=== PATIENT | female | born 1980 | race Caucasian/White ===

== ENCOUNTER 2021-02-22 10:03 | Outpatient (CLI) | payer BC, SELFPAY ==
--- NOTE | ~2021-02-22 | MM_ITS ---
EXAMINATION: MM screening [facility] BI w sera HISTORY: Screening mammogram TECHNIQUE: Craniocaudal and mediolateral oblique 3-D tomosynthesis images were obtained and synthetic 2-D images were generated. CAD analysis was submitted and interpreted. COMPARISON: 11/19/2012, 06/26/2008 BREAST PARENCHYMAL COMPOSITION: There are scattered areas of fibroglandular density. FINDINGS: RIGHT BREAST: An asymmetry is present in the posterior third of the outer breast 6 cm from the nipple on the craniocaudal view. LEFT BREAST: There is no evidence of suspicious mass, calcification, or architectural distortion to s uggest malignancy. There has been no significant interval change. IMPRESSION: 1. Right breast asymmetry. 2. Additional mammographic views and possible breast ultrasound are recommended. BI-RADS Category 0: Incomplete: Needs additional imaging evaluation. Reviewed, dictated and finalized at location A. IMPRESSION: 1. Right breast asymmetry. 2. Additional mammographic views and possible breast ultrasound are recommended . BI-RADS Category 0: Incomplete: Needs additional imaging evaluation.
== END 2021-02-22 10:04 | disposition home or self-care (01) ==
LOC: ANHIMG 10:07
DX: Z12.31 Encounter for screening mammogram for malignant neoplasm of breast (principal); R92.8 Other abnormal and inconclusive findings on diagnostic imaging of breast
CPT/HCPCS: 77063; 77067

== ENCOUNTER 2021-03-19 12:34 | Outpatient (CLI) | payer BC, SELFPAY ==
--- NOTE | ~2021-03-19 | MMUS_ITS ---
EXAMINATION: MM diagnostic viry RT w sera, US breast RT limited HISTORY: Follow-up right breast asymmetry TECHNIQUE: Additional 3-D tomosynthesis images of the right breast were performed and synthetic 2-D i mages were generated. CAD analysis was submitted and interpreted. High resolution Limited right breas t ultrasound was performed. COMPARISON: 02/22/2021 BREAST PARENCHYMAL COMPOSITION: Breast composed of scattered areas of fibroglandular density. FINDINGS: MAMMOGRAPHIC FINDINGS: There are no suspicious masses, calcifications or architectural distortion in the right breast to sug gest malignancy. ULTRASOUND: Limited right breast ultrasound: Normal heterogeneous echotexture without focal solid or cystic mass. IMPRESSION: 1. No evidence for malignancy in the right breast. 2. Routine yearly screening mammogram and regular clinical breast examination are recommended. BI-RADS Category 1: Negative Reviewed, dictated and finalized at location A. IMPRESSION: 1. No evidence for malignancy in the right breast. 2. Routine yearly screening mammogram and regular clinical breast examination a re recommended. BI-RADS Category 1: Negative
== END 2021-03-19 12:35 | disposition home or self-care (01) ==
LOC: ANHIMG 12:35
DX: R92.8 Other abnormal and inconclusive findings on diagnostic imaging of breast (principal)
CPT/HCPCS: 76642; 77061; 77065; G0279

== ENCOUNTER 2022-03-05 18:55 | Observation (INO) | payer BC, SELFPAY ==
--- NOTE | ~2022-03-05 | CT_ITS ---
EXAMINATION: CT abdomen pelvis w con DATE: 03/05/2022 19:46 INDICATION: RLQ pain TECHNIQUE: Computed tomography (CT) of the abdomen and pelvis was performed with 100 mL Omnipaque-300 intravenous contrast. Automated exposure control and iterative reconstruction technique were employe d. The dose-length product was 199.98 mGy-cm. COMPARISON: 09/15/2015. FINDINGS: Lower thorax: Unremarkable Liver: Normal. Biliary/Gallbladder: Gallbladder is absent. No bile duct dilation. Pancreas: No mass or duct dilation. Spleen: Normal. Adrenals:No mass. Kidneys: No mass, stone, or hydronephrosis. Right midpole hypodensity, too small to characterize but likely a cyst. GI tract: No small or large bowel dilation. The right upper quadrant appendix is mildly dilated, with wall hyperemia. Distal appendicolith. Surrounding inflammatory change and pericecal inflammatory nory nge. No wall breakdown. Hypermobile cecum situated in the right upper quadrant. Mesentery/Peritoneum: No ascites, mass, or free air. Retroperitoneum: No mass. Pelvis: Retroverted uterus. Posterior uterine scar. Status post left oophorectomy. Soft Tissues: Soft tissues and body wall unremarkable. Bones: No acute osseous finding. IMPRESSION: Acute appendicitis. Please note the appendix is located in the right upper quadrant between the infer ior liver and right kidney. Reviewed, dictated and finalized at location K. IMPRESSION: Acute appendicitis. Please note the appendix is located in the right upper quad rant between the inferior liver and right kidney.
[2022-03-05 19:00] VITALS: BP 113/63; PULSE 73; RESP 16; TEMP 36.7; O2SAT 100
[2022-03-05 19:35] LABS: Basophils Absolute Auto 0.1 K/mm3 (0.0-0.1); Basophils Percent Auto 0.6 % (0.2-1.2); Eosinophils Absolute Auto 0.1 K/mm3 (0-0.3); Eosinophils Percent Auto 0.9 % (0-4.4); Hematocrit 33.3 % (37.0-47.0); Hemoglobin 10.1 g/dL (12.0-15.0); Immature Granulocyte Absolute 0.02 K/mm3 (0.00-0.031); Immature Granulocyte Percent A 0.2 % (0-0.5); Lymphocytes Absolute Auto 2.15 K/mm3 (0.9-3.2); Lymphocytes Percent Auto 18.5 % (18.3-44.2); Mean Corpuscular HGB Conc 30.3 g/dl (32-36); Mean Corpuscular Volume 79.3 fl (80-100); Mean Platelet Volume 10.1 fl (7.4-10.4); Monocytes Absolute Auto 0.7 K/mm3 (0.1-0.6); Monocytes Percent Auto 6.3 % (2.6-8.5); Neutrophils Absolute Auto 8.6 K/mm3 (1.3-6.7); Neutrophils Percent Auto 73.5 % (45.5-73.1); Platelet Count Result 275 k/mm3 (150-375); Red Cell Distribution Width 14.6 % (11.5-14.5); White Blood Count 11.7 K/mm3 (4.5-10.0)
[2022-03-05 19:39] LABS: Estimated CRCL calculation 76 ml/min; Estimated Glomerular Filt Rate > 60
[2022-03-05 19:44] LABS: Alanine Aminotransferase 13 U/L (6-35); Albumin Level 4.8 g/dL (3.5-5.1); Alkaline Phosphatase 49 U/L (38-126); Anion Gap 7 mmol/L (8-16); Aspartate Amino Transferase 23 U/L (14-36); Bilirubin,Total 0.4 mg/dL (0.2-1.3); Blood Urea Nitrogen 10 mg/dL (7-17); Calcium 9.6 mg/dL (8.4-10.2); Carbon Dioxide 25 mmol/L (22-30); Chloride 106 mmol/L (98-107); Estimated CRCL calculation 76 ml/min; Estimated Glomerular Filt Rate > 60; Glucose 116 mg/dL (65-110); Lipase 84 U/L (23-300); Potassium 4.2 mmol/L (3.4-5.0); Sodium 138 mmol/L (137-145)
--- NOTE | 2022-03-05 20:10 | ED.GENADULT ---
HPI - General Adult General Chief complaint: Abdominal Pain Stated complaint: abd pain Time Seen by Provider: 03/05/22 19:29 History of Present Illness HPI narrative: 41-year-old female presenting to the emergency department for evaluation of lower abdominal pain. Patient states that she felt fine this morning and after lunch she reports she had a large bowel movement and had worsening lower abdominal pain. Patient since that time she has had nausea without vomiting. Patient reports that the pain has been located in the right lower abdomen. Patient does have a prior surgical history of an oophorectomy. Patient denies any prior history of cholecystectomy or appendectomy Related Data Home Medications Medication Instructions Recorded Confirmed No Home Medications 03/05/22 03/05/22 Allergies Allergy/AdvReac Type Severity Reaction Status Date / Time Penicillins Allergy Intermediate Hives Verified 03/05/22 22:12 adhesive tape Allergy Blister Verified 03/05/22 22:12 Review of Systems Review of Systems: CONSTITUTIONAL: Denies fever, chills, or sweats. EYES: Denies visual changes, redness, or discharge. ENT: Denies rhinorrhea, congestion, sore throat, or otalgia. CARDIOVASCULAR: Denies chest pain, palpitations, or edema. RESPIRATORY: Denies cough or dyspnea. GASTROINTESTINAL: See HPI GENITOURINARY: Denies dysuria or hematuria. SKIN: Denies rash or itching. MUSCULOSKELETAL: Denies back pain, joint pain, or myalgia. NEUROLOGIC: Denies headache, numbness, or weakness. [facility] Family History Family History (Updated 03/05/22 @ 22:00 by Leatha Montgomery RN) Grandparent Diabetes mellitus H/O heart surgery Father Heart attack Social History Social History Smoking status: Never smoker Alcohol intake: never Substance use: never Substance use type: does not use Spiritual care concerns: No Exam Narrative: APPEARANCE: Well appearing, no pain, no distress, well-nourished. HEAD: normocephalic, atraumatic. EYES: PERRLA/EOMI, conjunctivae clear. NOSE: Normal no drainage NECK: Supple. No adenopathy, no masses. RESPIRATORY: Airway patent, respirations nonlabored. Clear to auscultation bilaterally, no rales, rhonchi, wheezing. CARDIOVASCULAR: Regular rate and rhythm without murmurs rubs or gallops. ABDOMINAL: Soft, tenderness to right lower quadrant MUSCULOSKELETAL: Moves all extremities. Strength/ROM intact, No edema, No calf tenderness. NEURO: Alert. Cranial nerves II through XII intact. Grossly intact SKIN: Warm, dry. Normal Color Course Course Emergency Course: Patient declined any medications for pain control. Patient states she was not nauseous. CT scan did show acute appendicitis. Patient was admitted to Dr. Hughes. Patient was started on clinda and Cipro due to underlying penicillin allergy. Vital Signs Vital signs: Vital Signs Temperature 98.0 F 03/05/22 19:00 Pulse Rate 73 03/05/22 19:00 Respiratory Rate 16 03/05/22 19:00 Blood Pressure 113/63 03/05/22 19:00 Pulse Oximetry 100 03/05/22 19:00 Oxygen Delivery Room Air 03/05/22 19:00 Temperature 97.8 F 03/05/22 22:00 Pulse Rate 82 03/05/22 22:00 Respiratory Rate 18 03/05/22 22:00 Blood Pressure 91/49 L 03/05/22 22:00 Pulse Oximetry 100 03/05/22 22:00 Oxygen Delivery Room Air 03/05/22 21:35 Medical Decision Making Vital Signs Vital Signs: Vital Signs Temperature 98.0 F 03/05/22 19:00 Pulse Rate 73 03/05/22 19:00 Respiratory Rate 16 03/05/22 19:00 Blood Pressure 113/63 03/05/22 19:00 Pulse Oximetry 100 03/05/22 19:00 Oxygen Delivery Room Air 03/05/22 19:00 Temperature 97.8 F 03/05/22 22:00 Pulse Rate 82 03/05/22 22:00 Respiratory Rate 18 03/05/22 22:00 Blood Pressure 91/49 L 03/05/22 22:00 Pulse Oximetry 100 03/05/22 22:00 Oxygen Delivery Room Air 03/05/22 21:35 Lab Data Result diagrams: 03/05/22 19:24 03/05/22 19:3
[2022-03-05] MEDS: CLINDAMYCIN 600 MG/D5W 50 ML 600 MG/50 ML PIGGYBACK 100 MG IVPB (20:36)
[2022-03-05] MEDS: SODIUM CHLORIDE 0.9% IV 1,000 ML 125 ML IV CONT (20:36)
[2022-03-05] MEDS: METOCLOPRAMIDE HCL INJ 10 MG/2 ML VIAL IV PUSH (20:45)
[2022-03-05] MEDS: CIPROFLOXACIN 400 MG/D5W 200ML 200 ML 200 MG IVPB (21:04)
[2022-03-05 21:05] LABS: SARS-CoV-2 RNA PCR Negative
[2022-03-05 21:13] VITALS: BP 114/68; PULSE 70; RESP 16; O2SAT 100
--- NOTE | 2022-03-05 21:19 | PC.NURSE ---
patient being transferred to floor with IVF and IV abx infusing
--- NOTE | 2022-03-05 21:25 | ADMGEN ---
This patient, Tarah Kam, was admitted to [facility] Surg Room 301-01. Patient/family oriented to hospital policies and general routines including ID bracelet, bed and alarms, visiting hours, pain management, procedures, bathroom and other care routines, personal items, smoking policy, room service/diet, and visiting hours. Information on how to activate the Rapid Response Team has been discussed. Patient/Family are encouraged to report perceived risks to care and to ask questions if they do not understand what they are told or what they should do.
[2022-03-05 21:35] VITALS: BMI 20.7
[2022-03-05 22:00] VITALS: BP 91/49; PULSE 82; RESP 18; TEMP 36.6; O2SAT 100
[2022-03-05 22:09] LABS: Appearance Urine Clear (Clear); Bilirubin Urine Negative (Negative); Blood Urine Negative (Negative); Color Urine Yellow (Yellow); Glucose Urine UA Negative (Negative); Ketones Urine Negative (Negative); Leukocyte Esterase Ur Negative LEU/UL (Negative); Nitrate Urine Negative (Negative); Protein Urine Negative (Negative); Specific Grav Ur <= 1.005 (1.001-1.035); Urobilinogen Urine 0.2 mg/dL (<2.0); pH Urine 5.5 (5.0-9.0)
[2022-03-05 22:10] LABS: Add Urine Microscopic? NO
[2022-03-05] MEDS: ONDANSETRON INJ 4 MG/2 ML VIAL IV PUSH (23:57)
[2022-03-06] VITALS (8 sets, daily range): BP systolic 88–111; BP diastolic 43–71; PULSE 62–93; RESP 12–18; TEMP 36.2–36.7; O2SAT 99–100
[2022-03-06] MEDS: SODIUM CHLORIDE 0.9% IV 1,000 ML 125 ML IV CONT (04:38)
--- NOTE | 2022-03-06 07:24 | WPDHPUPDATE1 ---
History and Physical Update Update Date/Time: 03/06/22 07:24 History and Physical has been reviewed, including an updated exam of the patient. There are NO changes in the patient's condition. Risks, benefits, and alternatives have been discussed and questions answered. Patient agrees to proceed with procedure.
--- NOTE | 2022-03-06 07:25 | PM.IMHP ---
H&P: HPI History of Present Illness Date/Time: 03/06/22 07:25 Chief Complaint: Right lower quadrant pain Narrative: This is a 41-year-old woman who presented to the emergency department last night with right lower quadrant pain. She states that yesterday she began experiencing some vague abdominal pains and had a large bowel movement but pain persisted. Most of her pain was periumbilical initially. It has now localized more to the right lower quadrant. She has never experienced pain like this in the past. She denies any fevers or chills. She was having some nausea. She does have some occasional IBS type symptoms that have been more recent, but denies any other change in bowel habits. Review of Systems Review of Systems: All systems reviewed & are unremarkable except as noted in HPI and below Eyes: Eyes: Denies change in vision ENT: Denies hearing loss, Denies neck pain and Denies sore throat Cardiovascular: Cardiovascular: Denies chest pain and Denies dyspnea Respiratory: Respiratory: Denies cough, Denies dyspnea and Denies wheezing Genitourinary: Genitourinary: Denies hematuria and Denies dysuria Musculoskeletal: Musculoskeletal: Denies arthralgias, Denies joint swelling and Denies neck pain Allergic/Immunologic: Allergic/Immunologic: Denies wheezing PMFSH Past Medical History Medical History (Updated 03/06/22 @ 07:29 by Scooby Hughes DO) No pertinent past medical history Surgical History Surgical History (Updated 03/06/22 @ 07:28 by Scooby Hughes DO) History of left oophorectomy Hx laparoscopic cholecystectomy Family History Family History (Updated 03/05/22 @ 22:00 by Leatha Montgomery RN) Grandparent Diabetes mellitus H/O heart surgery Father Heart attack Social History Social History Smoking status: Never smoker Alcohol intake: never Substance use: never Substance use type: does not use Spiritual care concerns: No Meds Home Medications and Allergies Home Medications Medication Instructions Recorded Confirmed Type No Home Medications 03/05/22 03/05/22 History Allergies Allergy/AdvReac Type Severity Reaction Status Date / Time Penicillins Allergy Intermediate Hives Verified 03/05/22 22:12 adhesive tape Allergy Blister Verified 03/05/22 22:12 Vital Signs Vital Signs - 24 hr 03/05/22 19:00 03/05/22 21:13 03/05/22 21:35 Temperature 36.7 C Pulse Rate 73 70 Respiratory Rate 16 16 Blood Pressure 113/63 114/68 Pulse Oximetry 100 100 Oxygen Delivery Room Air Room Air 03/05/22 22:00 03/06/22 06:00 Temperature 36.6 C 36.2 C L Pulse Rate 82 75 Respiratory Rate 18 18 Blood Pressure 91/49 L 88/43 L Pulse Oximetry 100 100 Oxygen Delivery Exam Const: General: alert; No acute distress Orientation/consciousness: patient oriented x3 Limitations: no limitations HENMT: Head: normocephalic and atraumatic Ears: hearing grossly normal bilaterally General nose exam: Normal external nose present and Normal nares present Mouth: Yes Normal oral and palatal mucosa present and Yes moist mucous membranes Eyes: General: appearance normal, both eyes and all related structures Conjunctivae: conjunctivae normal Sclera: sclerae normal Pupils: Equal, round and reactive pupils present EOM: EOMs intact bilaterally Neck: Neck: normal visual inspection, full ROM, no lymphadenopathy, supple and no JVD Lymphatic: no lymphadenopathy noted Chest: Chest palpation & inspection: normal inspection of the chest Resp: Effort & Inspection: normal respiratory effort and able to speak in complete sentences Auscultation: clear to auscultation bilaterally Percussion: percussion normal Cardio: Jugular venous distension: no JVD Rate: regular rate Rhythm: regular rhythm Heart sounds: S1 normal heart sound present and S2 normal heart sound present Peripheral pulses: Peripheral pulses 2+ throughout GI: Inspection: normal to inspection GI Palp: Yes S
--- NOTE | 2022-03-06 07:38 | WPDANESEPPF ---
Anes - Initial Pre Proc Eval Procedure: Operation Date: 03/06/22 07:30 Proposed Procedures p Laparoscopic Appendectomy, possible open - Scooby Hughes DO Date/Time: 03/06/22 07:38 Surgeon: Scooby Hughes DO Pre Op Diagnosis: Acute Appy Patient Data Age: 41 Gender: F Height: 1.63 m Weight: 54.9 kg Last Vital Signs Temp 36.2 C L 03/06/22 06:00 Pulse 75 03/06/22 06:00 Resp 18 03/06/22 06:00 BP 88/43 L 03/06/22 06:00 Pulse Ox 100 03/06/22 06:00 O2 Del Method Room Air 03/05/22 21:35 Allergies Allergy/AdvReac Type Severity Reaction Status Date / Time Penicillins Allergy Intermediate Hives Verified 03/05/22 22:12 adhesive tape Allergy Blister Verified 03/05/22 22:12 Home Medications Medication Instructions Recorded Confirmed Type No Home Medications 03/05/22 03/05/22 History Laboratory Tests 03/05/22 03/05/22 03/05/22 19:24 19:24 19:33 WBC 11.7 K/mm3 H K/mm3 (4.5-10.0) RBC 4.20 M/mm3 M/mm3 (4.2-5.4) Hgb 10.1 g/dL L g/dL (12.0-15.0) Hct 33.3 % L % (37.0-47.0) MCV 79.3 fl L fl (80-100) MCH 24.0 pg L pg (26-34) MCHC 30.3 g/dl L g/dl (32-36) RDW 14.6 % H % (11.5-14.5) Plt Count 275 k/mm3 k/mm3 (150-375) MPV 10.1 fl fl (7.4-10.4) Immature Gran % (Auto) 0.2 % % (0-0.5) Neut % (Auto) 73.5 % H % (45.5-73.1) Lymph % (Auto) 18.5 % % (18.3-44.2) [place] % (Auto) 6.3 % % (2.6-8.5) Eos % (Auto) 0.9 % % (0-4.4) Baso % (Auto) 0.6 % % (0.2-1.2) Lymph # (Auto) 2.15 K/mm3 K/mm3 (0.9-3.2) [place] # (Auto) 0.7 K/mm3 H K/mm3 (0.1-0.6) Eos # (Auto) 0.1 K/mm3 K/mm3 (0-0.3) Baso # (Auto) 0.1 K/mm3 K/mm3 (0.0-0.1) Abs Immat Gran (auto) 0.02 K/mm3 K/mm3 (0.00-0.031) Absolute Neuts (auto) 8.6 K/mm3 H K/mm3 (1.3-6.7) Absolute Nucleated RBC 0.0 K/mm3 K/mm3 (0.0-0.012) Nucleated RBC % 0.0 % % (0.0-0.2) Sodium 138 mmol/L mmol/L (137-145) Potassium 4.2 mmol/L mmol/L (3.4-5.0) Chloride 106 mmol/L mmol/L (98-107) Carbon Dioxide 25 mmol/L mmol/L (22-30) Anion Gap 7 mmol/L L mmol/L (8-16) BUN 10 mg/dL mg/dL (7-17) Creatinine 0.70 mg/dL mg/dL 0.70 mg/dL mg/dL (0.7-1.0) (0.7-1.2) Estim Creat Clear Calc 76 ml/min ml/min 76 ml/min ml/min Estimated GFR > 60 > 60 (59 - ) (59 - ) Glucose 116 mg/dL H mg/dL (65-110) Calcium 9.6 mg/dL mg/dL (8.4-10.2) Total Bilirubin 0.4 mg/dL mg/dL (0.2-1.3) AST 23 U/L U/L (14-36) ALT 13 U/L U/L (6-35) Alkaline Phosphatase 49 U/L U/L (38-126) Total Protein 8.0 g/dL g/dL (6.3-8.2) Albumin 4.8 g/dL g/dL (3.5-5.1) Lipase 84 U/L U/L (23-300) Urine Color Urine Appearance Urine pH Ur Specific [place] Urine Protein Urine Glucose (UA) Urine Ketones Ur Blood (Man) Urine Nitrate Urine Bilirubin Urine Urobilinogen Leukocyte Esterase Rfl SARS-CoV-2 RNA (RT-PCR) 03/05/22 03/05/22 20:21 21:56 WBC RBC Hgb Hct MCV MCH MCHC RDW Plt Count MPV Immature Gran % (Auto) Neut % (Auto) Lymph % (Auto) [place] % (Auto) Eos % (Auto) Baso % (Auto) Lymph # (Auto) [place] # (Auto) Eos # (Auto) Baso # (Auto) Abs Immat Gran (auto) Absolute Neuts (auto) Absolute Nucleated RBC Nucleated RBC % Sodium Potassium Chloride
[2022-03-06] MEDS: SCOPOLAMINE 1.5 MG PATCH TRANSDERM (07:45)
[2022-03-06] MEDS: LACTATED RINGERS 1,000 ML 30 ML IV CONT (07:45)
[2022-03-06] MEDS: ceFAZolin 2 GM/D5W 50 ML 2 GM/50 ML BAG IVPB (07:46)
[2022-03-06] MEDS: metroNIDAZOLE 500 MG/ISO 100ML 500 MG/100 ML BAG 100 MG IVPB (07:55)
[2022-03-06] MEDS: LIDO 1%/EPINEPHRINE 1:100,000 10 ML VIAL 30 ML INFILTRATE (08:10)
--- NOTE | 2022-03-06 08:52 | W.PM.PROC2 ---
Procedure Note - Detailed Date of Procedure 03/06/22 Pre-op Diagnosis Acute Appy Post-op Diagnosis Same Procedure Performed Laparoscopic appendectomy Surgeon Scooby Hughes, DO Anesthesia General and Local (0.5% bupivacaine with epinephrine) Indications This is a 41-year-old presented to emergency department last night with right lower quadrant abdominal pain that started earlier that day. She was having vague periumbilical pain that then localized to the right lower quadrant. She had never experienced pain like this before. She had a slightly elevated white blood count at 11.[address] showed evidence of acute appendicitis. She was started on broad-spectrum IV antibiotics was admitted for observation. The following morning discussions were made the patient about treatment options and decision was made to proceed with laparoscopic appendectomy, possible open Findings Laparoscopic appendectomy was performed. Appendix was identified retrocecal location appendix appeared towards the inferior edge of right lobe the liver. There were some adhesions up to the inferior edge of the liver from her prior laparoscopic cholecystectomy. Some of these adhesions were taken down to better visualize the appendix and adequately mobilize the appendix down to the base. The appendix appeared inflamed did not appear to be perforated and there was no evidence of abscess. The base of the appendix appeared healthy and viable. The appendix was removed and sent to the lab for pathology. Description of Procedure Procedure as well as risks, benefits, and alternatives were explained to the patient. The patient agreed to proceed. Written consent was obtained and placed in chart prior to procedure. The patient was brought back to surgical suite. She was placed supine on operating table. Time-out was done to confirm the patient and procedure. The patient was then intubated by the Anesthesia Department. Her abdomen was prepped and draped in sterile fashion using chlorhexidine prep. A 12 mm incision was made at the inferior portion of the umbilicus. Blunt dissection was carried out down to the linea alba. The linea alba was then incised using a 15 blade scalpel. Then bluntly entered into the peritoneal cavity. A 12 mm trocar was then inserted, and carbon dioxide insufflation was used to create a pneumoperitoneum. The camera was inserted and the abdomen was inspected. No immediate abnormalities were identified. The patient was then placed in slight Trendelenburg position and rotated to the left. A 5 mm incision was made in the suprapubic region in midline and a 5 mm trocar was inserted under direct visualization. A 5 mm incision was made in the subxiphoid region and a 5 mm trocar was inserted under direct visualization. The right lower quadrant was carefully inspected. The cecum was identified and then this was traced back to the appendix. The appendix was identified and grasped at the mesoappendix and lifted anteriorly. The mesoappendix was carefully cauterized using hook electrocautery along the length of the appendix until the base of the appendix was reached. An Endo-EMILY 45 mm blue load stapler was then advanced across the base of the appendix and clamped and fired. This freed up our appendix completely. It was then placed in an EndoCatch bag and removed through the umbilical port. The staple lines were then inspected. Hemostasis appeared adequate and the staple lines appeared secure. The area was then irrigated with sterile saline. The pelvis was then carefully inspected and irrigated with sterile saline as well and the remainder of the abdomen was carefully inspected. The patient was then flattened out in bed. One final inspection was made around the abdominal cavity and no other abnormalities were seen. The ports were then removed under direct visualization. The camera was removed and the pneumoperitoneum was released. The fascia of the umbilical incision was malissa
[2022-03-06] MEDS: ONDANSETRON INJ 4 MG/2 ML VIAL IV PUSH ×2 (08:57→13:42)
--- NOTE | 2022-03-06 08:57 | PM.DS ---
DS: Admitting Diagnosis Discharge Date 03/06/2022 Admitting Diagnosis Acute appendicitis DS: Discharge Diagnosis Discharge Diagnosis (1) Acute appendicitis: Qualifiers: Acute appendicitis type: with localized peritonitis Appendicitis abscess presence: unspecified whether abscess present Appendicitis gangrene presence: without gangrene Appendicitis perforation presence: unspecified whether perforation present Qualified Code(s): K35.30 - Acute appendicitis with localized peritonitis, without perforation or gangrene Code(s): K35.80 - Unspecified acute appendicitis Status: Acute DS: Summary Hospital Course Reason for hospitalization: Acute appendicitis Hospital Course: This is a 41-year-old woman who presented to the emergency department on 03/05/2022 with complaints of right lower quadrant pain. Her pain started earlier day. She had elevated white blood count 11.[address] showed evidence of acute appendicitis. She was given IV antibiotics and was placed hospital overnight for observation. She underwent laparoscopic appendectomy on 03/06/2022. Surgery was uncomplicated and she was returned to the surgical floor postoperatively. Her diet and activity were advanced as tolerated. She was discharged once pain was controlled, vitals remained stable, she was tolerating her diet, and she was ambulating in the halls. Status at Discharge Functional status at discharge: independent ambulation Overall status at discharge: patient is progressing back to baseline Time Spent with Patient Time attestation: Total time spent providing and/or coordinating discharge services: Time spent: Less than 30 minutes Exam Narrative: Unchanged from preoperative exam except for surgical changes DS: Data Data Completed and Pending Pending studies at discharge: Pending at discharge 03/06/22 08:13 Surgical [PTH] Routine Labs on day of discharge: Labs from last 24 hours 03/05/22 03/05/22 03/05/22 21:56 20:21 19:33 WBC RBC Hgb Hct MCV MCH MCHC RDW Plt Count MPV Immature Gran % (Auto) Neut % (Auto) Lymph % (Auto) [place] % (Auto) Eos % (Auto) Baso % (Auto) Lymph # (Auto) [place] # (Auto) Eos # (Auto) Baso # (Auto) Abs Immat Gran (auto) Absolute Neuts (auto) Absolute Nucleated RBC Nucleated RBC % Sodium Potassium Chloride Carbon Dioxide Anion Gap BUN Creatinine 0.70 Estim Creat Clear Calc 76 Estimated GFR > 60 Glucose Calcium Total Bilirubin AST ALT Alkaline Phosphatase Total Protein Albumin Lipase Urine Color Yellow Urine Appearance Clear Urine pH 5.5 Ur Specific Roy <= 1.005 Urine Protein Negative Urine Glucose (UA) Negative Urine Ketones Negative Ur Blood (Man) Negative Urine Nitrate Negative Urine Bilirubin Negative Urine Urobilinogen 0.2 Leukocyte Esterase Rfl Negative SARS-CoV-2 RNA (RT-PCR) Negative 03/05/22 03/05/22 19:24 19:24 WBC 11.7 H RBC 4.20 Hgb 10.1 L Hct 33.3 L MCV 79.3 L MCH 24.0 L MCHC 30.3 L RDW 14.6 H Plt Count 275 MPV 10.1 Immature Gran % (Auto) 0.2 Neut % (Auto) 73.5 H Lymph % (Auto) 18.5 [place] % (Auto) 6.3 Eos % (Auto) 0.9 Baso % (Auto) 0.6 Lymph # (Auto) 2.15 [place] # (Auto) 0.7 H Eos # (Auto) 0.1 Baso # (Auto) 0.1 Abs Immat Gran (auto) 0.02 Absolute Neuts (auto) 8.6 H Absolute Nucleated RBC 0.0 Nucleated RBC % 0.0 Sodium 138 Potassium 4.2 Chloride 106 Carbon Dioxide 25 Anion Gap 7 L BUN 10 Creatinine 0.70 Estim Creat Clear Calc 76 Estimated GFR > 60 Glucose 116 H Calcium 9.6 Total Bilirubin 0.4 AST 23 ALT 13 Alkaline Phosphatase 49 Total Protein 8.0 Albumin 4.8 Lipase 84 Urine Color Urine Appearance Urine pH Ur Specific [place] Urine Protein Urine Glucose (UA) Urine [place]
[2022-03-06] MEDS: diphenhydrAMINE HCl INJ 50 MG/ML VIAL 12.5 MG IV PUSH (09:14)
== END 2022-03-06 13:55 | disposition home or self-care (01) ==
LOC: ANHED 19:52 → ANH3MEDSUR 21:07
PROVIDERS: Emergency Medicine; Admitting Provider Surgery; Emergency Provider Emergency Medicine; PCP Nurse Practitioner Family; Visit Provider Surgery
PROC: 0DTJ4ZZ Resection of Appendix, Percutaneous Endoscopic Approach (ICD-10-PCS; CPT 44970; principal; 2022-03-06 07:30)
DX: K35.80 Unspecified acute appendicitis (principal); Z20.822 Contact with and (suspected) exposure to COVID-19
CPT/HCPCS: 44970; 36415; 74177; 80053; 81003; 83690; 85025; 88304; 96365; 96375; 96376; 99285; A9270; C9803; G0378; J0131; J0330; J0690; J0744; J1100; J1200; J2250; J2405; J2704; J2765; J3010; J7030; J7120; Q9967; U0003; U0005

== ENCOUNTER 2022-03-07 18:49 | Emergency (ER) | payer BC, SELFPAY ==
--- NOTE | ~2022-03-07 | XR_ITS ---
EXAMINATION: XR chest 2V Exam Date/Time: 03/07/2022 19:00 CDT HISTORY: right sided LOWER chest pain INTO BACK, APPY ON 03/05 Comparison: None available. RESULT: Lines, tubes, and devices: Cholecystectomy clips. Lungs and pleura: Clear. Cardiomediastinal silhouette: Stable. Other: Moderate volume pneumoperitoneum. IMPRESSION: No acute cardiopulmonary process. Moderate pneumoperitoneum, consistent with given history of recent surgery. Reviewed, dictated and finalized at location K.
--- NOTE | ~2022-03-07 | CT_ITS ---
EXAMINATION: CTA chest PE abdomen pel DATE: 03/07/2022 21:39 INDICATION: right upper quadrant pain/chest pain, recent appy TECHNIQUE: Computed tomography angiography (CTA) of the chest was performed with 100 mL Omnipaque-350 intravenous contrast timed to evaluate the pulmonary arteries and portal venous phase images of the abdomen and pelvis. Coronal maximum intensity projection 3D-reconstructions were created of the chest by the technologist. The dose-length product (DLP) was 394.54 mGy-cm. Automated exposure control and iterative reconstruction technique were employed. COMPARISON: CT abdomen and pelvis 03/05/2022. FINDINGS: CTPA: Study quality: Adequate. Pulmonary arteries: No pulmonary emboli detected. Thoracic aorta: Normal. Lung parenchyma and airways: Clear. Thoracic inlet, axillae and chest wall: Unremarkable. Mediastinum: Normal. Heart and pericardium: Normal. Coronary artery calcifications: . Pleura: Unremarkable. Thoracic bones: No acute osseous finding. CT abdomen and pelvis: Exam limited by arm down positioning and resultant beam hardening artifact. Liver: Normal. Biliary/Gallbladder: Gallbladder is absent. No bile duct dilation. Pancreas: No mass or duct dilation. Spleen: Normal. Adrenals:No mass. Kidneys: No mass, stone, or hydronephrosis. Previously detected right midpole hypodensity is obscured by beam hardening. GI tract: No small or large bowel dilation. Normal appendix. Mesentery/Peritoneum: Small volume free air. Small volume fluid and inflammatory change in Morison's pouch, extending down the right paracolic gutter. Moderate volume free pelvic fluid density measuring 20 Hounsfield units. Retroperitoneum: No mass. Pelvis: Posterior uterine scar. Status post right oophorectomy. Soft Tissues: Post laparoscopic surgical change in the anterior abdominal wall. Abdominopelvic bones: No acute osseous finding. IMPRESSION: No CT evidence of acute pulmonary embolus. Post surgical change status post laparoscopic appendectomy . Moderate volume free pelvic fluid, slightly greater than expected volume for normal postsurgical ch hemalatha. No active contrast extravasation detected. Slow, low volume venous hemorrhage or bowel leak are not excluded. Reviewed, dictated and finalized at location K. IMPRESSION: No CT evidence of acute pulmonary embolus. Post surgical change status post lap aroscopic appendectomy. Moderate volume free pelvic fluid, slightly greater neel n expected volume for normal postsurgical change. No active contrast extravasat ion detected. Slow, low volume venous hemorrhage or bowel leak are not excluded .
[2022-03-07 18:54] VITALS: BP 106/61; PULSE 76; RESP 18; TEMP 36.4; O2SAT 100
--- NOTE | 2022-03-07 19:00 | ECG_ITS ---
Measurements Intervals [place] Rate: 71 P: 12 SC: 152 QRS: 44 QRSD: 85 T: 50 QT: 389 QTc: 424 Interpretive Statements SINUS RHYTHM WITH SINUS ARRHYTHMIA BASELINE ARTIFACT- I, II, III, AVR, AVL, AVF, V1, V4-V6 NORMAL ECG Electronically Signed On 03-07-2022 20:51:29 CDT by Brad Patel D.O.
--- NOTE | 2022-03-07 19:04 | PC.NURSE ---
Pt taken to X ray at this time
--- NOTE | 2022-03-07 19:20 | ED.GENADULT ---
HPI - General Adult General Chief complaint: Unspecified Stated complaint: breathing pain post surgery on right side Time Seen by Provider: 03/07/22 19:00 Source: patient Mode of arrival: ambulatory Limitations: no limitations History of Present Illness HPI narrative: This is a 41 year old female that presents to the ER for right upper quadrant pain/chest pain. Noted today. Had a laparoscopic appendectomy yesterday. Reports the pain is worse with deep breathing. She has not been taking any prescribed pain medication as it makes her vomit. She has not had a BM. She has passed gas. Denies fever, cough or shortness of breath. Related Data Allergies Allergy/AdvReac Type Severity Reaction Status Date / Time Penicillins Allergy Intermediate Hives Verified 03/05/22 22:12 adhesive tape Allergy Blister Verified 03/05/22 22:12 Review of Systems Review of Systems: CONSTITUTIONAL: Denies fever CARDIOVASCULAR: Reports chest pain RESPIRATORY: Denies cough or dyspnea. GASTROINTESTINAL: Reports abdominal pain All systems reviewed & are unremarkable except as noted in HPI and below PMFSH Past Medical History Medical History (Updated 03/07/22 @ 23:04 by Liana Jay PA-C) Anxiety Surgical History Surgical History (Updated 03/07/22 @ 23:04 by Liana Jay PA-C) History of appendectomy History of left oophorectomy Hx laparoscopic cholecystectomy Family History Family History Grandparent Diabetes mellitus H/O heart surgery Father Heart attack Social History Social History Smoking status: Never smoker Alcohol intake: never Substance use: never Substance use type: does not use Spiritual care concerns: No Exam Narrative: GENERAL: Well-appearing, well-nourished, and in no acute distress. HEAD: Normocephalic, atraumatic. EYES: EOMI. CHEST: Clear to auscultation. No respiratory distress. No wheezes rales or rhonchi HEART: Regular rate and rhythm. No murmur heard. Normal peripheral pulses. ABDOMEN: Soft, nondistended, normal active bowel sounds. Mild tenderness to palpation throughout the abdomen, without guarding. Incisions are clean, dry and intact without surrounding erythema EXTREMITIES: Normal range of motion. No edema. SKIN: Warm, dry, no rash. NEURO: No focal deficits. Alert and oriented x3. PSYCH: Normal mood and affect Course Vital Signs Vital signs: Vital Signs Temperature 97.6 F 03/07/22 18:54 Pulse Rate 76 03/07/22 18:54 Respiratory Rate 18 03/07/22 18:54 Blood Pressure 106/61 03/07/22 18:54 Pulse Oximetry 100 03/07/22 18:54 Oxygen Delivery Room Air 03/07/22 18:54 Temperature 97.6 F 03/07/22 18:54 Pulse Rate 76 03/07/22 18:54 Respiratory Rate 18 03/07/22 18:54 Blood Pressure 106/61 03/07/22 18:54 Pulse Oximetry 100 03/07/22 18:54 Oxygen Delivery Room Air 03/07/22 18:54 Medical Decision Making MDM Narrative Medical decision making narrative: Patient presents to the emergency department for right upper quadrant abdominal pain. Associated with pleuritic chest pain. History of recent laparoscopic appendectomy. Patient is afebrile and nontoxic-appearing. Exam seems normal status post appendectomy. Her vitals are stable. CBC is without leukocytosis. Does show normocytic anemia with hemoglobin of 9.5, which appears to be stable from her previous labs. Metabolic panel and lipase without concerning findings. Bedside test is negative. D-dimer was elevated, so CTA of the chest was obtained. No CT evidence of acute PE. Postsurgical changes status post laparoscopic appendectomy. Moderate volume free pelvic fluid, slightly greater than expected volume for normal postsurgical change. No active contrast extravasation detected. Patient was updated on case findings. Spoke with Dr. Hughes about patient and work-up who agrees
[2022-03-07 19:41] LABS: Basophils Absolute Auto 0.1 K/mm3 (0.0-0.1); Basophils Percent Auto 0.8 % (0.2-1.2); Eosinophils Absolute Auto 0.1 K/mm3 (0-0.3); Hematocrit 32.3 % (37.0-47.0); Hemoglobin 9.5 g/dL (12.0-15.0); Immature Granulocyte Absolute 0.02 K/mm3 (0.00-0.031); Immature Granulocyte Percent A 0.3 % (0-0.5); Lymphocytes Absolute Auto 1.95 K/mm3 (0.9-3.2); Lymphocytes Percent Auto 31.1 % (18.3-44.2); Mean Corpuscular HGB Conc 29.4 g/dl (32-36); Mean Corpuscular Hemoglobin 24.2 pg (26-34); Mean Corpuscular Volume 82.2 fl (80-100); Mean Platelet Volume 10.4 fl (7.4-10.4); Monocytes Absolute Auto 0.7 K/mm3 (0.1-0.6); Monocytes Percent Auto 10.4 % (2.6-8.5); Neutrophils Absolute Auto 3.6 K/mm3 (1.3-6.7); Neutrophils Percent Auto 56.4 % (45.5-73.1); Platelet Count Result 238 k/mm3 (150-375); Red Blood Count 3.93 M/mm3 (4.2-5.4); Red Cell Distribution Width 15.2 % (11.5-14.5); White Blood Count 6.3 K/mm3 (4.5-10.0)
[2022-03-07 19:52] LABS: INR 1.2; Prothrombin Time 14.5 Seconds (11.1-14.7)
[2022-03-07 19:53] LABS: Alanine Aminotransferase 12 U/L (6-35); Albumin Level 4.4 g/dL (3.5-5.1); Alkaline Phosphatase 48 U/L (38-126); Anion Gap 9 mmol/L (8-16); Aspartate Amino Transferase 19 U/L (14-36); Bilirubin,Total 0.4 mg/dL (0.2-1.3); Blood Urea Nitrogen 9 mg/dL (7-17); Calcium 8.9 mg/dL (8.4-10.2); Carbon Dioxide 28 mmol/L (22-30); Chloride 104 mmol/L (98-107); Estimated Glomerular Filt Rate > 60; Glucose 95 mg/dL (65-110); Lipase 72 U/L (23-300); Partial Thromboplastin Time 25.3 SECONDS (22.3-36.8); Potassium 3.6 mmol/L (3.4-5.0); Sodium 141 mmol/L (137-145)
[2022-03-07 20:01] LABS: D Dimer 0.94 ug/mL (<0.48)
[2022-03-07 20:16] LABS: Anisocytosis 1+ (NORMAL); Hypochromasia 1+ (NORMAL); Platelet Estimate Adequate (Adequate)
[2022-03-07 23:17] VITALS: BP 114/72; PULSE 61; RESP 18; O2SAT 100
== END 2022-03-07 23:18 | disposition home or self-care (01) ==
PROVIDERS: Physician Assistant; Emergency Provider Emergency Medicine; PCP Nurse Practitioner Family
DX: R10.11 Right upper quadrant pain (principal); Z98.890 Other specified postprocedural states; Z90.49 Acquired absence of other specified parts of digestive tract; Z90.721 Acquired absence of ovaries, unilateral
CPT/HCPCS: 36415; 71046; 71275; 74177; 80053; 81025; 83690; 85025; 85380; 85610; 85730; 93005; 99284; Q9967

== ENCOUNTER 2022-03-13 14:21 | Emergency (ER) | payer BC, SELFPAY ==
[2022-03-13] VITALS (8 sets, daily range): BP systolic 105–132; BP diastolic 57–109; PULSE 82–85; RESP 14–16; TEMP 36.8; O2SAT 100
--- NOTE | 2022-03-13 17:34 | ED.WOUNDLAC ---
HPI - Wound/Laceration General Chief Complaint: Wound/Laceration Stated Complaint: wound recheck Time Seen by Provider: 03/13/22 16:50 Source: RN notes reviewed History of Present Illness HPI narrative: Patient presents emergency department from home for possible infection. Patient states that she had an appendectomy performed by Dr. Hughes 1 week ago. Patient states that she did have some redness around the several of her wounds been gone and was seen in the office on Monday or 2 days ago states that time they thought she was having reaction to the skin glue and skin glue was removed she states today she was concerned about some redness around her bellybutton she had had a small amount of drainage from the wound she called Dr Palafox at that time and he recommend she come to the ER for further evaluation. Patient states she did have a temperature of 100.3 earlier today but has no temperature at this time. She denies any abdominal pain nausea vomiting or any other symptoms Related Data Allergies Allergy/AdvReac Type Severity Reaction Status Date / Time Penicillins Allergy Intermediate Hives Verified 03/13/22 16:50 adhesive tape Allergy Blister Verified 03/13/22 16:50 Review of Systems Review of Systems: Gen. reports fever of 100.3 at home Abdomen: Denies abdominal pain Neuro: Denies numbness, tingling, weakness Skin: See HPI Endo: Denies DM PMFSH Past Medical History Medical History Anxiety Surgical History Surgical History History of appendectomy History of left oophorectomy Hx laparoscopic cholecystectomy Family History Family History Grandparent Diabetes mellitus H/O heart surgery Father Heart attack Social History Social History Smoking status: Never smoker Alcohol intake: never Substance use: never Substance use type: does not use Spiritual care concerns: No Exam Narrative: APPEARANCE: No acute distress, nontoxic, resting in bed Eyes: EOMI HEENT: Normocephalic, atraumatic, RESPIRATORY: No respiratory distress Abdomen: Soft nontender to palpation MUSCULOSKELETAl: No clubbing cyanosis or edema NEURO: Awake and alert. Following commands, speech normal, no focal deficits SKIN:: Warm, dry. Normal Color healing wounds over her abdomen a most superior wound has minimal erythema in a circular region around the room consistent with a contact dermatitis there is no signs of infection inferior wound also is normal in appearance around it. Umbilicus there is a small wound with minimal amount of serous drainage there is no purulent drainage there is minimal if any erythema Course Course Emergency Course: Called and discussed with Dr. Palafox presentation work-up at this time he recommends reassurance to the patient with dressing placed and patient to follow-up with Dr. Hughes in office tomorrow Discussed with patient results of workup and diagnosis. Discussed need for follow-up with primary care, proper use of medication, and reasons to return to the emergency department. Patient understands and agrees to current treatment plan Vital Signs Vital signs: Vital Signs Temperature 98.3 F 03/13/22 14:24 Pulse Rate 85 03/13/22 14:24 Respiratory Rate 14 03/13/22 14:24 Blood Pressure 116/65 03/13/22 14:24 Pulse Oximetry 100 03/13/22 14:24 Oxygen Delivery Room Air 03/13/22 14:24 Temperature 98.3 F 03/13/22 14:24 Pulse Rate 85 03/13/22 14:24 Respiratory Rate 14 03/13/22 14:24 Blood Pressure 116/65 03/13/22 14:24 Pulse Oximetry 100 03/13/22 14:24 Oxygen Delivery Room Air 03/13/22 14:24 Discharge Plan Discharge Clinical Impression: Encounter for postoperative wound check Patient Disposition: Home, Self-Care Condition: Stable Instruct
--- NOTE | 2022-03-13 18:21 | PC.NURSE ---
unhappy about not being provided antibx for infected surgical site. educated that provider felt pt was free from infection, said provider had spoken to on-call about poc and no new orders were obtained. during cleaning of wound pt herself was shown clean gauze that showed no drainage from umbilical site, and pt was happy about answers to her questions
== END 2022-03-13 18:20 | disposition home or self-care (01) ==
PROVIDERS: Emergency Provider Emergency Medicine; PCP Nurse Practitioner Family
DX: Z48.01 Encounter for change or removal of surgical wound dressing (principal); Z90.49 Acquired absence of other specified parts of digestive tract; Z90.721 Acquired absence of ovaries, unilateral
CPT/HCPCS: 87070; 87075; 87205; 99282; 99283

== ENCOUNTER 2022-11-08 10:28 | Outpatient (CLI) | payer BC, SELFPAY ==
[2022-11-08 11:14] LABS: Alanine Aminotransferase 15 U/L (6-35); Albumin Level 4.8 g/dL (3.5-5.1); Alkaline Phosphatase 46 U/L (38-126); Anion Gap 8 mmol/L (8-16); Aspartate Amino Transferase 20 U/L (14-36); Bilirubin,Total 0.5 mg/dL (0.2-1.3); Blood Urea Nitrogen 8 mg/dL (7-17); Carbon Dioxide 27 mmol/L (22-30); Chloride 103 mmol/L (98-107); Estimated Glomerular Filt Rate > 60; Glucose 94 mg/dL (65-110); Sodium 138 mmol/L (137-145)
[2022-11-08 13:16] LABS: Free T4 Free Thyroxine Reflex 0.93 ng/dL (0.78-2.19)
[2022-11-08 14:03] LABS: Total Triiodothyronine (T3) 1.26 NG/ML (0.97-1.69)
[2022-11-11 19:34] LABS: ANA Cascade Screen Negative (Negative)
== END 2022-11-08 10:29 | disposition home or self-care (01) ==
LOC: ANHLAB 10:29
PROVIDERS: PCP Family Medicine; Visit Provider Physician Assistant
DX: R53.83 Other fatigue (principal); D64.9 Anemia, unspecified; M25.50 Pain in unspecified joint
CPT/HCPCS: 36415; 80053; 84439; 84443; 84480; 86038

== ENCOUNTER 2023-08-15 15:03 | Outpatient (CLI) | payer BC, SELFPAY ==
[2023-08-15 15:22] LABS: Basophils Absolute Auto 0.1 K/mm3 (0.0-0.1); Basophils Percent Auto 0.8 % (0.2-1.2); Eosinophils Absolute Auto 0.2 K/mm3 (0-0.3); Hematocrit 39.4 % (37.0-47.0); Hemoglobin 12.7 g/dL (12.0-15.0); Immature Granulocyte Absolute 0.11 K/mm3 (0.00-0.031); Immature Granulocyte Percent A 1.4 % (0-0.5); Lymphocytes Absolute Auto 1.18 K/mm3 (0.9-3.2); Lymphocytes Percent Auto 15.4 % (18.3-44.2); Mean Corpuscular HGB Conc 32.2 g/dl (32-36); Mean Corpuscular Hemoglobin 28.3 pg (26-34); Mean Corpuscular Volume 87.8 fl (80-100); Mean Platelet Volume 10.2 fl (7.4-10.4); Monocytes Absolute Auto 0.6 K/mm3 (0.1-0.6); Monocytes Percent Auto 8.2 % (2.6-8.5); Neutrophils Absolute Auto 5.6 K/mm3 (1.3-6.7); Neutrophils Percent Auto 72.2 % (45.5-73.1); Platelet Count Result 206 k/mm3 (150-375); Red Blood Count 4.49 M/mm3 (4.2-5.4); Red Cell Distribution Width 15.8 % (11.5-14.5); White Blood Count 7.7 K/mm3 (4.5-10.0)
[2023-08-15 16:13] LABS: Iron 34 ug/dL (37-170)
[2023-08-15 16:31] LABS: Percent Iron Saturation 9 % (20-50)
[2023-08-17 20:31] LABS: Red Blood Cell Folate 579 ng/mL RBC (>280)
== END 2023-08-15 15:04 | disposition home or self-care (01) ==
PROVIDERS: PCP Family Medicine; Visit Provider Physician Assistant
DX: D64.9 Anemia, unspecified (principal)
CPT/HCPCS: 36415; 82728; 82747; 83540; 83550; 85025

== ENCOUNTER 2023-08-24 02:09 | Day surgery (SDC) | payer BC, SELFPAY ==
[2023-07-31 08:42] VITALS: BMI 27.6
--- NOTE | 2023-08-22 10:00 | SUR.PREOP ---
Patient called regarding upcoming procedure. Message left on pt's voicemail regarding appointment times.
[2023-08-24 07:27] VITALS: BP 110/66; PULSE 92; RESP 18; TEMP 37.2; O2SAT 100; BMI 19.2
[2023-08-24] MEDS: LACTATED RINGERS 1,000 ML 150 ML IV CONT (07:30)
--- NOTE | 2023-08-24 08:08 | WPDANESEPPF ---
Anes - Initial Pre Proc Eval Procedure: Operation Date: 08/24/23 08:30 Proposed Procedures p Colonoscopy - Karlos Lin MD Date/Time: 08/24/23 08:08 Surgeon: Karlos Lin MD Pre Op Diagnosis: anemia Patient Data Age: 42 Gender: F Height: 1.63 m Weight: 50.9 kg Last Vital Signs Temp 99 F 08/24/23 07:27 Pulse 92 08/24/23 07:27 Resp 18 08/24/23 07:27 BP 110/66 08/24/23 07:27 Pulse Ox 100 08/24/23 07:27 O2 Del Method Room Air 08/24/23 07:27 Allergies Allergy/AdvReac Type Severity Reaction Status Date / Time Penicillins Allergy Intermediate Hives Verified 08/24/23 07:24 adhesive tape Allergy Blister Verified 08/24/23 07:24 skin glue AdvReac Severe dermatitis Uncoded 08/24/23 07:24 Home Medications Medication Instructions Recorded Confirmed Type Xgupv-Jenked-Wlc-Azbvu-Pfkvp-vyzmukyv 1 cap PO DAILY 09/16/22 08/24/23 History 40 billion cell-[address] ([facility] Complete Formulation Probiotic) Synthroid 25 mcg tablet 25 mcg PO DAILY #90 tabs 08/15/23 08/24/23 Rx (levothyroxine) ferrous sulfate 137 mg (45 mg 137 mg PO DAILY 08/15/23 08/24/23 History iron) tablet,extended release (Slow Fe) Patient hx anesthesia problems: none Family hx anesthesia problems: none Results Review: All pre-operative results and documents have been reviewed as part of the pre-operative evaluation. [facility] Past Medical History Medical History Anxiety Surgical History Surgical History History of appendectomy History of left oophorectomy Hx laparoscopic cholecystectomy Family History Family History Grandparent Diabetes mellitus H/O heart surgery Father Heart attack Social History Social History Social History: Smoking status: Never smoker Second hand tobacco smoke exposure: No Substance use type: does not use Lack of Transportation: No Lack of Food: Never True Current Housing: I Have Housing Concerned About Future Housing: No Difficulty Paying Gas/Electric Bills: No Difficulty Paying for Meds: No Currently Unemployed: No Education: Decline to Answer Difficulty w/ Childcare or Family Care: No Living arrangements: other Additional living arrangements comments: with sp Occupation/Education: unemployed Additional occupation/education comments: [employer] Gender identity (if verbalized by the patient): Female Sexual Orientation (if Verbalized by the Patient): Straight or Heterosexual Spiritual care concerns: No Anes - Eval Final PreProcedure Day of Procedure 08/24/23 08:08 Patient weight: normal Heart: regular rate and rhythm Lungs: clear to auscultation Airway: Mallampati scale class II Neurological: alert and oriented Last oral intake: >/= 8 hours ASA classification: II Emergent: no Anesthetic plan: proceed Anesthesia type and monitoring: general GIVS and standard monitoring Results Review: All pre-operative results and documents have been reviewed as part of the pre-operative evaluation. Informed Consent: The patient's anesthetic plan and its attendant risks and benefits were discussed with the patient/family/POA. Questions were solicited and answers provided to the satisfaction of the patient/family/POA.
--- NOTE | 2023-08-24 08:11 | PM.HPGS ---
History of Present Illness History of Present Illness Consent: Risks, benefits, and alternatives have been discussed and questions answered. Patient agrees to proceed with procedure. Chief complaint: anemia Narrative: Tarah Kam is a 42 year old female with dawna but responded to iron treatment, no overt gib, never had colonoscopy Review of Systems Constitutional: Constitutional: Denies headache(s) and Denies weakness Eyes: Eyes: Denies blurry vision ENT: Reports Normal hearing present, Denies headache(s) and Denies neck pain Cardiovascular: Cardiovascular: Denies chest pain and Denies dyspnea Respiratory: Respiratory: Denies dyspnea Gastrointestinal: Gastrointestinal: Reports no additional gastrointestinal complaints Genitourinary: Genitourinary: Denies dysuria Musculoskeletal: Musculoskeletal: Denies neck pain Integumentary/Breasts: Skin/Breast: Denies dry skin Neurologic: Reports Normal hearing present, Denies headache(s) and Denies weakness Psychiatric: Psychiatric: Denies anxiety Endocrine: Endocrine: Denies change in body appearance Hematologic/Lymphatic: Hematologic/Lymphatic: Denies easy bleeding Allergic/Immunologic: Allergic/Immunologic: Denies urticaria PMFSH Past Medical History Medical History Anxiety Surgical History Surgical History History of appendectomy History of left oophorectomy Hx laparoscopic cholecystectomy Family History Family History Grandparent Diabetes mellitus H/O heart surgery Father Heart attack Social History Social History Social History: Smoking status: Never smoker Second hand tobacco smoke exposure: No Substance use type: does not use Lack of Transportation: No Lack of Food: Never True Current Housing: I Have Housing Concerned About Future Housing: No Difficulty Paying Gas/Electric Bills: No Difficulty Paying for Meds: No Currently Unemployed: No Education: Decline to Answer Difficulty w/ Childcare or Family Care: No Living arrangements: other Additional living arrangements comments: with sp Occupation/Education: unemployed Additional occupation/education comments: SAHM Gender identity (if verbalized by the patient): Female Sexual Orientation (if Verbalized by the Patient): Straight or Heterosexual Spiritual care concerns: No Meds Home Medications and Allergies Home Medications Medication Instructions Recorded Confirmed Type Tsltn-Cclqer-Uvz-Prnle-Bqvuu-oyzzkmbr 1 cap PO DAILY 09/16/22 08/24/23 History 40 billion cell-15 mg capsule (W Complete Formulation Probiotic) Synthroid 25 mcg tablet 25 mcg PO DAILY #90 tabs 08/15/23 08/24/23 Rx (levothyroxine) ferrous sulfate 137 mg (45 mg 137 mg PO DAILY 08/15/23 08/24/23 History iron) tablet,extended release (Slow Fe) Allergies Allergy/AdvReac Type Severity Reaction Status Date / Time Penicillins Allergy Intermediate Hives Verified 08/24/23 07:24 adhesive tape Allergy Blister Verified 08/24/23 07:24 skin glue AdvReac Severe dermatitis Uncoded 08/24/23 07:24 Vital Signs Vital Signs - 24 hr 08/24/23 07:27 Temperature 99 F Pulse Rate 92 Respiratory Rate 18 Blood Pressure 110/66 Pulse Oximetry 100 Oxygen Delivery Room Air Exam Const: General: comfortable and no acute distress HENMT: Face/Nose/Sinus: Normal nares present Eyes: General: appearance normal, both eyes and all related structures Neck: Neck: no JVD Resp: Auscultation: clear to auscultation bilaterally Cardio: Rate: regular rate Rhythm: regular rhythm GI: Inspection: non-distended GI Palp: Yes Soft to palpation Skin: General skin exam: normal color Neuro: General: gait normal Speech: nor
[2023-08-24 08:32] VITALS: BP 92/55; PULSE 94; RESP 20; O2SAT 100
[2023-08-24 08:42] VITALS: BP 105/70; PULSE 86; RESP 28; O2SAT 100
[2023-08-24 08:52] VITALS: BP 110/69; PULSE 64; RESP 17; O2SAT 100
--- NOTE | 2023-08-24 14:07 | SUR.PHASEII ---
1350 patient called complaining of lower pubic and rectal pressure. Procedure report review. Patient stated she has been to the bathroom and had some liqiud stool pass. Instructed patient that I would have Dr. Doty call her. Dr. Doty given the message and condition report of patient. He said he would call her.
== END 2023-08-24 09:05 | disposition home or self-care (01) ==
PROVIDERS: PCP Family Medicine; Visit Provider Internal Medicine Gastroenterology
PROC: 0DJD8ZZ Inspection of Lower Intestinal Tract, Via Natural or Artificial Opening Endoscopic (ICD-10-PCS; CPT 45378; principal; 2023-08-24 08:30)
DX: D64.9 Anemia, unspecified (principal); F41.9 Anxiety disorder, unspecified; Z90.49 Acquired absence of other specified parts of digestive tract; Z82.49 Family history of ischemic heart disease and other diseases of the circulatory system
CPT/HCPCS: 45378; J1100; J2405; J2704; J7120

== ENCOUNTER 2023-11-20 09:30 | Outpatient (CLI) | payer BC, SELFPAY ==
--- NOTE | ~2023-11-20 | MM_ITS ---
EXAMINATION: MM screening viry BI w sera HISTORY: Screening mammogram TECHNIQUE: Craniocaudal and mediolateral oblique 3-D tomosynthesis images were obtained and synthetic 2-D images were generated. Bilateral rotated lateral CC views. CAD analysis was submitted and interp reted. COMPARISON: 03/19/2021 diagnostic right mammogram and limited right breast ultrasound examination, repo rted negative 02/22/2021 bilateral screening mammogram BREAST PARENCHYMAL COMPOSITION: There are scattered areas of fibroglandular density. FINDINGS: Scattered bilateral benign calcified microhematomas are again noted. There is no evidence o f suspicious mass, calcification, or architectural distortion to suggest malignancy in either breast. There has been no suspicious interval change. IMPRESSION: 1. No mammographic evidence of malignancy. 2. Recommend routine screening mammography in one year. BI-RADS Category 2: Benign finding(s). Reviewed, dictated and finalized at location B.
== END 2023-11-20 09:31 | disposition home or self-care (01) ==
LOC: ANHIMG 09:32
PROVIDERS: PCP Family Medicine; Visit Provider Physician Assistant
DX: Z12.31 Encounter for screening mammogram for malignant neoplasm of breast (principal)
CPT/HCPCS: 77063; 77067

== ENCOUNTER 2025-04-25 14:54 | Outpatient (CLI) | payer BC, SELFPAY ==
--- NOTE | ~2025-04-25 | MM_ITS ---
EXAMINATION: MM screening viry BI w sera HISTORY: Screening TECHNIQUE: Craniocaudal and mediolateral oblique 3-D tomosynthesis images were obtained and synthetic 2-D images were generated. CAD analysis was submitted and interpreted. COMPARISON: Mammogram 02/22/2021 BREAST PARENCHYMAL COMPOSITION: There are scattered areas of fibroglandular density. FINDINGS: There is no evidence of suspicious mass, calcification, or architectural distortion to suggest malignancy. There has been no suspicious interval change. IMPRESSION: 1. No mammographic evidence of malignancy. Recommend routine screening mammography in one year. BI-RADS Category 2: Benign finding(s) Reviewed, dictated and finalized at location Q. IMPRESSION: 1. No mammographic evidence of malignancy. Recommend routine screening mammogra phy in one year. BI-RADS Category 2: Benign finding(s)
--- OUTSIDE RECORDS SUMMARY | 2025-04-25 15:30 | XMS_ITS | Clinical Summary ---
Author Organization [facility] [place] [address] Address [address] [place] [id number] Care Team Providers Care Truck Chauffeur Name Role Phone Unavailable Primary Care Provider Unavailabl e Allergies Active Allergy Reactions Criticality Noted Date Comments Penicillins Medications cyanocobalamin (Vitamin B-12) 1,000 mcg tabletIndication s:Prevention of Vitamin B12 Deficiency Take 1 tablet (1,000 mcg total) by mouth daily Active cholecalciferol (VITAMIN D-3) 25 mcg (1,000 unit) tablet Take 1 tablet (1,000 Units total) by mouth daily Active Synthroid 25 mcg tablet Take 1 tablet (25 mcg total) by mouth daily 09/30/2024 Active Active Problems Problem Noted Date Diagnosed Date Vitamin D deficiency 10/06/2021 Assessment & Plan (10/06/2021 11:12 PM VP BIOLOGY): Vit D level is low Will start with Vit D3 500IU bid. Will repeat lab level in 4 months. Also talked about food that would help with def. Encouraged to continue with exercise. Malaise and fatigue 09/01/2021 Assessment & Plan (10/06/2021 10:37 PM VP BIOLOGY): Note still has some fatigue, does states she is sleeping well. Reviewed lab with patient. Note B12 low and Vit D low, rest of the lab normal limits. Will start o B12 sublingual 1000mcg daily. Will start V D3 500IU bid Continue with exercise and get good quality Sleep. Will repeat lab on B12 in 2 months and Vit D testing in 4 months. Assessment & Plan (09/01/2021 10:30 PM VP BIOLOGY): Lab work today Talked about diet, fluids, sleep, and exercise. States she follows a stick diet, do to family health issues. Does drink a lot of ice tea. Exercise, note she does planks and is now working on core exercises. Exercises in some composite. Request 2 week food diary. Hip pain, bilateral 09/01/2021 Assessment & Plan (10/06/2021 11:10 PM VP BIOLOGY): Continue with stretching before and after exercise. Note pain is improved. Continue to monitor hips for pain , cramping etc. Assessment & Plan (09/01/2021 10:34 PM VP BIOLOGY): Exam shows some tenderness in bursa areas bilaterally. Has good ROM, no crepitus noted. Note legs are of equal length and strength. Will continue to monitor and find out what makes them hurt or any other pain Hyperlipidemia, unspecified 09/01/2021 Assessment & Plan (10/06/2021 11:13 PM VP BIOLOGY): Hyperlipidemia , lab is good. No problems at this time Continue to eat balanced, exercise, adequate fluid. Assessment & Plan (09/05/2021 7:46 PM VP BIOLOGY): Lab work Continue to watch diet.add whole grains, dark grape juice, 3 fish a week, avoid higher fat meats. Exercise. Push fluids. Immunizations Immunization Administration Dates Next Due Influenza, Unspecified 10/06/2021(Deferr ed: Patient Refused),10/06/2020(Deferred: Patient Refused) Surgical History Surgery Date Site/Laterality Comments LAPAROSCOPIC CHOLECYSTECTOMY 08/14/2009 - 08/13/2010 Social History Tobacco Use Types Packs/Day Years Used Date Smoking Tobacco: Never Smokeless Tobacco: Never AUDIT-C Answer Date Recorded Q1: How often do you have a drink containing alc ohol? Never 10/09/2024 Average Number of Drinks Not on file 025 Frequency of Binge Drinking Not on file 09/15 PHQ-2 Answer Date Recorded PHQ-2 Total Score (If total score is 3 or more points, staff should administer the PHQ-9) 0 10/06/2021 Comments Unknown Sex and Gender Information Value Date Recorded Sex Assigned at Not on file Legal Sex Female 1:14 PM VP BIOLOGY Gender Identity Not on file Sexual Orientation Not on file Obstetrics History Para Term AB IAB SAB Ectopic Multiple Livin g Live Births 2 2 2 Date Outcome GA Total Labor Labor/2nd/3rd Weight Sex Type Anes PTL Fozia A1 A5 Name Clin 2006 Term M Vaginal Will 2011 Term F Vaginal Rosetta Last Filed Vital Signs Vital Sign Reading Time Taken Comments Blood Pressure 104/62 10/09/2024 11:49 AM VP BIOLOGY Pulse 84 06/22/2022 3:44 PM VP BIOLOGY Temperature 36.9 C (98.4 F) 06/22/2022 3:44 PM VP BIOLOGY Respiratory Rate 16 06/22/2022 3:44 PM VP BIOLOGY Oxygen Saturation 99% 06/22/2022 3:44 PM VP BIOLOGY Inhaled Oxygen Concentration - - Weight 54 kg (119 lb) 10/09/2024 11:49 AM VP BIOLOGY Height 162.6 cm (5' 4) 06/22/2022 3:44 PM VP BIOLOGY Body Mass Index 20.43 06/22/2022 3:44 PM VP BIOLOGY Plan of Treatment Health Maintenance Due Date Last Done Comments Cervical Cancer Screening 1979 Colon Cancer Screening-Colonoscopy 1979 Hepatitis C Screening 1979 DTaP/Tdap/Td Vaccine (1 - Tdap) 1990 Varicella Vaccines (1 of 2 - 13+ 2-dose series) 1992 Hepatitis B Screening 1997 HPV Vaccines (1 - 3-dose SCD M series) 2006 Breast Cancer Screening-Mammogram 03/19/2022 03/19/2021 Depression Screening 10/06/2022 10/06/2021, 09/01/2021 Covid-19 Vaccine (4 - 2024-2 6 season) 2025 07/06/2021, 11/28/2020, 10/31/2020 Influenza Vaccine (#1) 2025 Regular Well Visit/Exam 18-64 10/09/2025 10/09/2024 Pneumococcal vaccine <65 Aged Out No longer eligible based on patient's age to complete this topic Procedures Procedure Name Priority Date/Time Associated Diagnosis Comments SCREENING MAMMOGRAM 2D BILATERAL Schedule Routine, Read Routine (OP Routine) 03/19/2021 from Last 3 Months or Most Recently Relevant to Health Maintenance Results * Screening Mammogram 2D Bilateral (03/19/2021) Anatomical Region Laterality Modality Breast Bilateral Mammography us Historical Provider MD CANO MAMMO PROCEDURES Maria Luisa l Result from Last 3 Months or Most Recently Relevant to Health Maintenance Insurance [facility]
--- OUTSIDE RECORDS SUMMARY | 2025-04-25 15:30 | XMS_ITS | Encounter Summary ---
Author Organization [facility] Address [address] [place] [address] Care Team Providers Care Painter Shipyard Name Role Phone Walt Andres MD Primary Care Provider Encounter Details Date Type Department Care Team (Late st Contact Info) Description 11/10/2021 Lab Requisition [facility] Derm[facility] Lab [address], [facility] [place] [id number] Reagan Da Silva MD [address] [place] [address] Social History Tobacco Use Types Packs/Day Years Used Date Smoking Tobacco: Never Assessed Comments Unknown Sex and Gender Information Value Date Recorded Sex Assigned at Not on file Legal Sex Female 4:52 PM CDT Gender Identity Not on file Sexual Orientation Not on file documented as of this encounter Plan of Treatment Not on file documented as of this encounter Procedures Procedure Name Priority Date/Time Associated Diagnosis Comments DERMATOPATHOLOGY Routine 11/09/2021 12:0 0 AM CDT documented in this encounter Results * DERMATOPATHOLOGY (11/09/2021 12:00 AM CDT) Case Report Dermatopathology Report Case: [id number] Authorizing Provider: Reagan Da Silva MD Collected: 11/09/2021 12:00 AM Ordering Location: [facility] D[facility] Lab Received: 11/10/2021 04:57 PM Pathologist: Judith Trevizo MD Specimen: Skin, left upper back 2:56 PM CDT DERMATOPATHOLOGY LABORATORY Final Diagnosis Specimen A. SKIN, left upper back: SQUAMOUS CELL CARCINOMA IN SITU, PRESENT AT THE BASE OF THE SPECIMEN (D04.5) ULCER WITH SUPERFICIAL DERMAL NECROSIS (L98.499) (see microscopic description and comment) 2 2:56 PM CDT DERMATOPATHOLOGY LABORATORY at 1456 CDT Clinical History ISK vs irritated nevus vs other. Path # [id number]. 2 2:56 PM CDT DERMATOPATHOLOGY LABORATORY Gross Description Specimen A: Received is one formalin filled container labeled with the patient's name and designated left upper back. The specimen consists of a shave biopsy measuring [id number]. Jar 0. 2:56 PM CDT DERMATOPATHOLOGY LABORATORY Microscopic Description Specimen A. SKIN, left upper back: The epidermis shows parakeratosis, full thickness disorderly maturation of keratinocytes, and dyskeratotic cells. The lesion extends to the base of the biopsy. There is an ulcer, beneath which there are vascular proliferation, fibroblasts, and an edematous stroma. Additional deeper sections were obtained and reviewed. COMMENT: An invasive squamous cell carcinoma cannot be ruled out. 2:56 PM CDT DERMATOPATHOLOGY LABORATORY Disclaimer An external and internal positive and negative controls are appropriate for the histochemical, immunohistochemical and immunofluorescence stain(s) in this case (if any), except where stated explicitly. The performance characteristics of the stain(s) cited in this report were developed and its performance characteristic determined by the Dermatopathology Laboratory at [facility], directed by Dr. Lenka Rogers. These tests need not be, and therefore are not, approved by the [place] Food and Drug Administration. The tests are used for clinical purposes. Billing Codes Specimen Charges Stain Charges 10945 1 2 2:56 PM CDT DERMATOPATHOLOGY LABORATORY Embedded Images 2 2:56 PM CDT DERMATOPATHOLOGY LABORATORY Pathology/Cytolog y TISSUE SPECIMEN FROM SKIN / Unknown 11/09/2021 11/10/2021 4:57 PM CDT us Reagan Da Silva MD LAB - PATHOLOGY/CYTOLOGY ORDER LIUDMILA Final Result DERMATOPATHOLOGY LABORATORY [facility] - Department of Dermatology [address] [phone] documented in this encounter Visit Diagnoses Not on filedocumented in this encounter Care Teams Painter Shipyard Relationship Specialty Start Date End Date Walt Andres MD [address] [place] [phone] PCP - General 11/10/21 documented as of this encounter
--- OUTSIDE RECORDS SUMMARY | 2025-04-25 15:30 | XMS_ITS | Clinical Summary ---
Author Organization [facility] Address [address] [place] [address] Phone Care Team Providers Care Rubberizing Mechanic Name Role Phone Tenisha Heredia Primary Care Provider + [phone] Allergies Active Allergy Reactions Criticality Noted Date Comments Penicillins Hives High 04/27/2009 Medications ACETAMINOPHEN (TYLENOL PO) Take by mouth. Active IBUPROFEN PO Take by mouth. Active Active Problems Patient Care Coordination No te Formatting of this note migh t be different from the original. Primary Care: MELIDA Alford Referring Provider: Tenisha Heredia [address] [place] [address] Other: No additional problems on file Family History Medical History Relation Name Comments Heart Disease Father Breast Cancer Other maternal great grand mot Relation Name Status Comments Father Other maternal great grand mot Alive Social History Tobacco Use Types Packs/Day Years Used Date Smoking Tobacco: Never Alcohol Use Standard Drinks/Week Comments Yes 0 (1 standard drink = 0.6 oz pur e alcohol) rarely Comments No Sex and Gender Information Value Date Recorded Sex Assigned at Not on file Legal Sex Female 5:43 AM TECHNICAL MGR Gender Identity Not on file Sexual Orientation Not on file Last Filed Vital Signs Vital Sign Reading Time Taken Comments Blood Pressure 112/78 04/29/2009 3:05 PM CDT Pulse - - Temperature - - Respiratory Rate - - Oxygen Saturation - - Inhaled Oxygen Concentration - - Weight 68.5 kg (151 lb) 04/29/2009 3:05 PM CDT Height 162.6 cm (5' 4) 04/29/2009 3:05 PM CDT Body Mass Index 25.92 04/29/2009 3:05 PM CDT Plan of Treatment Health Maintenance Due Date Last Done Comments DTAP/TDAP/TD VACCINES (1 - Tdap) 1998 HEPATITIS B VACCINES (1 of 3 - 19+ 3-dose series) 08/15 HPV/Cotest (21-29) 2000 HPV VACCINES (1 - 3-dose SCDM series) 2006 CERVICAL CANCER SCREENING 2009 HPV/Cotest (30-65) 2009 PAP SMEAR 2009 BREAST CANCER SCREENING 2019 COLORECTAL SCREENING 2024 Colorectal Cancer Screening 2024 FIT-DNA Q 3 years 2024 FIT/FOBT Q 1 year 2024 Flex Sig/CT Colonography Q 5 years 2024 INFLUENZA VACCINE (#1) 2025 Insurance [facility] Care Teams Rubberizing Mechanic Relationship Specialty Start Date End Date Tenisha Heredia PA PCP - General 12/09/08
--- OUTSIDE RECORDS SUMMARY | 2025-04-25 15:30 | XMS_ITS | Clinical Summary ---
Author Organization [facility] Address [address] [place] [address] Care Team Providers Care Meal Miller Name Role Phone Walt Andres MD Primary Care Provider Source Comments [facility],non-owned Affiliates and Associated Physician Practices is amultiple site organization consisting of ambulatory clinics and hospital sitesin [place], [place], [place] and [place]. This disclosure is being madepursuant to the Care Everywhere program and may not contain all information available regarding this patient. Last updated 18.[facility] Social History Tobacco Use Types Packs/Day Years Used Date Smoking Tobacco: Never Assessed Comments Unknown Sex and Gender Information Value Date Recorded Sex Assigned at Not on file Legal Sex Female 4:52 PM CDT Gender Identity Not on file Sexual Orientation Not on file Plan of Treatment Health Maintenance Due Date Last Done Comments COLOGUARD (AGES 45-75) - COL ON CA SCREENING 1979 COLON MONITORING 1979 COLONOSCOPY - COLON CA SCREENING 1979 CT COLONOGRAPHY - COLON CA SCREENING 1979 Colorectal Cancer Screening 1979 FIT - COLON CA SCREENING 1979 FLEX SIG - COLON CA SCREENING 1979 LIPID TESTING 1979 MAMMOGRAM 1979 HIV SCREENING 1994 HEPATITIS C SCREENING 08/28/1997 DTAP/TDAP/TD VACCINES (1 - Tdap) 1998 HEPATITIS B VACCINE (1 of 3 - 19+ 3-dose series) 1998 HPV VACCINE (1 - 3-dose SCDM series) 2006 COVID-19 VACCINE ( - 2023-2 5 season) 2024 DEPRESSION SCREENING 08/14/2024 INFLUENZA VACCINE (#1) 2025 ZOSTER VACCINE (1 of 2) 2029 HIB VACCINE Aged Out No longer eligi ble based on patient's age to complete this topic MENINGOCOCCAL (Group B) VACC INE SHARED DECISION-MAKING Aged Out No longer eligibl e based on patient's age to complete this topic MENINGOCOCCAL GROUPS A/C/Y/W VACCINE Aged Out No longer eligible b ased on patient's age to complete this topic PNEUMOCOCCAL VACCINE Aged Out No long er eligible based on patient's age to complete this topic Insurance [employer] Care Teams Meal Miller Relationship Specialty Start Date End Date Walt Andres MD [address] [place] [id number] PCP - General 11/10/21
== END 2025-04-25 14:55 | disposition home or self-care (01) ==
LOC: ANHFOHIMG 14:57
PROVIDERS: PCP Family Medicine; Visit Provider Family Medicine
DX: Z12.31 Encounter for screening mammogram for malignant neoplasm of breast (principal)
CPT/HCPCS: 77063; 77067